=== PATIENT | male | born 1985 | race African-American/Black ===

== ENCOUNTER 2019-02-23 21:19 | Emergency (ER) | payer OTHER ==
[~2019-02-23] VITALS: Ht 172.7 cm; Wt 74.8 kg
[2019-02-23 22:00] LABS: AMP/METHAMP Negative (Negative); BARBITURATES Negative (Negative); BENZODIAZEPINES Negative (Negative); COCAINE Negative (Negative); METHADONE Negative (Negative); OPIATES Negative (Negative); PCP Negative (Negative)
[2019-02-23 22:23] LABS: CREATININE 1.4 mg/dL (0.7-1.3)
[2019-02-23 22:24] LABS: POTASSIUM 2.5 mmol/L (3.5-5.1)
[2019-02-23 22:41] LABS: ABSOLUTE NEUTROPHILS 6.7 thou/uL (1.4-8.2); BASOPHILS 0.7 % (0.0-2.0); EOSINOPHILS 0.1 % (0.0-3.0); HEMATOCRIT 43.3 % (42.0-52.0); HEMOGLOBIN 14.5 gm/dL (14.0-18.0); LYMPHOCYTES 19.3 % (24.0-44.0); MCH 27.1 pg (26.0-34.0); MCHC 33.4 g/dL (28.0-37.0); MCV 81.1 fL (80.0-100.0); MONOCYTES 7.5 % (1.0-8.0); PLATELET COUNT 278 thou/uL (150-400); POLYS 72.4 % (36.0-66.0); RBC 5.35 mil/uL (4.50-6.00); RDW 12.7 % (10.5-14.5); WBC 9.3 thou/uL (4.0-11.0)
[2019-02-23 23:09] LABS: CALCIUM 9.3 mg/dL (8.5-10.1); CREATININE 1.1 mg/dL (0.7-1.3)
[2019-02-23 23:15] LABS: POTASSIUM 2.7 mmol/L (3.5-5.1)
[2019-02-24] MEDS ORDERED: POTASSIUM20 PO (01:29)
[2019-02-24 07:06] VITALS: BP 142/93
== END 2019-02-24 07:07 | disposition home or self-care (01) ==
LOC: ER 21:19
PROVIDERS: Emergency Medicine
DX: F19.159 Other psychoactive substance abuse with psychoactive substance-induced psychotic disorder, unspecified (principal)